=== PATIENT | female | born 2000 | race Caucasian/White ===

== ENCOUNTER 2023-10-26 21:23 | Emergency (ER) | payer BC ==
[2023-10-26] MEDS: Ibuprofen 600 MG Tab PO ONE (21:35)
== END 2023-10-26 22:47 | disposition home or self-care (01) ==
LOC: MW.ED 21:23
DX: S89.91XA Unspecified injury of right lower leg, initial encounter (principal); E10.9 Type 1 diabetes mellitus without complications; Z79.4 Long term (current) use of insulin; Z79.899 Other long term (current) drug therapy; Z75.8 Other problems related to medical facilities and other health care; W18.30XA Fall on same level, unspecified, initial encounter
CPT/HCPCS: 73562; 99283; A9270

== ENCOUNTER 2023-10-27 06:42 | Emergency (ER) | payer BC | END 2023-10-27 06:50 | disposition left against medical advice (07) | LOC: MW.ED 06:42 | DX: Z53.21 Procedure and treatment not carried out due to patient leaving prior to being seen by health care provider (principal) ==